=== PATIENT | female | born 1950 | race Caucasian/White ===

== ENCOUNTER 2018-06-28 10:19 | Emergency (ER) | payer OTHER, MEDICARE ==
[~2018-06-28] VITALS: Ht 165.1 cm; Wt 65.8 kg
[2018-06-28] MEDS ORDERED: ONDANSETRON HCL 4 MG ORAL DISINTEGRATING TAB PO ONE (11:30)
[2018-06-28] MEDS ORDERED: TRAMADOL HCL 50 MG TAB PO ONE (11:30)
[2018-06-28] MEDS ORDERED: ULTRAM50 MG PO (11:44)
[2018-06-28] MEDS ORDERED: ZOFRAN ODT4 MG SL (11:44)
== END 2018-06-28 11:57 | disposition home or self-care (01) ==
LOC: FSED 10:19
DX: M25.562 Pain in left knee (principal); S83.412A Sprain of medial collateral ligament of left knee, initial encounter; S83.242A Other tear of medial meniscus, current injury, left knee, initial encounter; X58.XXXA Exposure to other specified factors, initial encounter; Y92.481 Parking lot as the place of occurrence of the external cause; I10 Essential (primary) hypertension; J44.9 Chronic obstructive pulmonary disease, unspecified
CPT/HCPCS: 99284

== ENCOUNTER 2021-11-04 13:20 | Emergency (ER) | payer MEDICARE, OTHER ==
[~2021-11-04] VITALS: Ht 165.1 cm; Wt 56.7 kg
[~2021-11-04 13:20] MED LIST: ULTRAM50 MG PO; ZOFRAN ODT4 MG SL
[2021-11-04] MEDS ORDERED: FAMOTIDINE 20 MG/2 ML VIAL IV STA (13:56)
[2021-11-04] MEDS ORDERED: DEXAMETHASONE SOD PHOS 10 MG/1 ML VIAL IV ONE (14:15)
[2021-11-04] MEDS ORDERED: SODIUM CHLORIDE 0.9% 500ML 500 ML IV ONE (14:15)
[2021-11-04] MEDS ORDERED: ONDANSETRON HCL INJ 2MG/ML 2ML 2 MG/ML VIAL IV STA (15:12)
[2021-11-04] MEDS ORDERED: ONDANSETRON HCL INJ 2MG/ML 2ML 2 MG/ML VIAL ONE (15:20)
[2021-11-04 17:00] VITALS: BP 123/72
== END 2021-11-04 16:50 | disposition home or self-care (01) ==
LOC: ER 13:48
DX: R06.02 Shortness of breath (principal); L25.9 Unspecified contact dermatitis, unspecified cause; I10 Essential (primary) hypertension; J44.9 Chronic obstructive pulmonary disease, unspecified; Z85.828 Personal history of other malignant neoplasm of skin; F17.210 Nicotine dependence, cigarettes, uncomplicated
CPT/HCPCS: 99284; J1100; J7040; J2405

== ENCOUNTER 2025-03-15 11:13 | Inpatient (IN) | payer MEDICARE ==
[~2025-03-15] VITALS: Ht 165.1 cm; Wt 59.0 kg
[2025-03-15 12:47] LABS: BASOPHILS # (AUTO) 0.1 (0.0-0.1); BASOPHILS % 0.8 % (0.0-1.0); EOSINOPHILS # (AUTO) 0.2 (0.0-0.4); EOSINOPHILS % 2.3 % (0.0-6.0); HEMATOCRIT 46.2 % (34.2-44.1); HEMOGLOBIN 16.1 g/dL (12.0-16.0); LYMPHOCYTES # (AUTO) 1.1 (1.0-3.2); LYMPHOCYTES % 15.3 % (18.0-39.1); MEAN CORPUSCULAR HEMOGLOBIN 32.9 pg (28-32); MEAN CORPUSCULAR HGB CONC 34.8 g/dL (31-35); MEAN CORPUSCULAR VOLUME 94.3 fL (81-99); MONOCYTES # (AUTO) 0.7 (0.2-0.8); MONOCYTES % 9.8 % (4.4-11.3); NEUTROPHILS # (AUTO) 5.3 (2.1-6.9); NEUTROPHILS % 71.4 % (38.7-80.0); PLATELET COUNT 311 x10e3/uL (140-360); RED CELL DISTRIBUTION WIDTH 13.1 % (11.7-14.4); WHITE BLOOD COUNT 7.37 x10e3/uL (4.8-10.8)
[2025-03-15 13:04] LABS: INR 0.84
[2025-03-15 13:05] LABS: PARTIAL THROMBOPLASTIN TIME 30.3 seconds (23.8-35.5)
[2025-03-15] MEDS: HYDROMORPHONE 1MG/1ML INJ IV STA (13:05)
[2025-03-15] MEDS: SODIUM CHLORIDE 0.9% 1000ML 1,000 ML IV STA (13:05)
[2025-03-15 13:09] VITALS: TEMP 97.8
[2025-03-15 13:12] LABS: ALBUMIN 3.7 g/dL (3.5-5.0); ALBUMIN/GLOBULIN RATIO 0.9 (0.8-2.0); BILIRUBIN,TOTAL 0.5 mg/dL (0.2-1.2); CALCIUM 9.3 mg/dL (8.4-10.2); CREATININE, SERUM 0.72 mg/dL (0.57-1.11); MAGNESIUM 2.1 MG/DL (1.3-2.1); TOTAL PROTEIN 7.9 g/dL (6.5-8.1)
[2025-03-15 13:18] LABS: TROPONIN I 0.003 ng/mL (0-0.300)
[2025-03-15] MEDS ORDERED: IOPAMIDOL 370 MG/ML 100 ML INFUS..BTL INJ ONE (13:28)
[2025-03-15 14:03] LABS: BILIRUBIN,URINE NEGATIVE (NEGATIVE); CLARITY,URINE SL CLOUDY (CLEAR); COLOR,URINE YELLOW (YELLOW); GLUCOSE, URINE NEGATIVE (NEGATIVE); KETONES,URINE 1+ (NEGATIVE); LEUKOCYTE ESTERASE ,URINE NEGATIVE (NEGATIVE); NITRITE,URINE NEGATIVE (NEGATIVE); PH,URINE 6 (5 - 7); PROTEIN,URINE DIPSTICK NEGATIVE (NEGATIVE); URINE UROBILINOGEN 0.2 mg/dL (0.2 - 1)
[2025-03-15] MEDS: ONDANSETRON HCL INJ 2MG/ML 2ML 2 MG/ML VIAL IV STA (14:14)
[2025-03-15 14:16] LABS: BACTERIA,URINE FEW /HPF; EPITHELIAL CELLS,URINE MANY /LPF
[2025-03-15 14:43] LABS: CHOL/HDL RATIO 2.8 (3.0-3.6)
[2025-03-15 16:46] VITALS: PULSE 89; RESP 24
[2025-03-15] MEDS: SODIUM CHLORIDE 0.9% 1000ML 1,000 ML IV SCH (17:50)
[2025-03-15] MEDS: HYDROMORPHONE 1MG/1ML INJ IV PRN (17:51)
[2025-03-15] MEDS: ONDANSETRON HCL INJ 2MG/ML 2ML 2 MG/ML VIAL IV PRN (17:51)
[2025-03-15 20:00] VITALS: BP 137/79; PULSE 80; RESP 18; TEMP 97.2; O2SAT 100
[2025-03-15 20:35] VITALS: BP 137/79; PULSE 80; RESP 18; TEMP 97.2; O2SAT 100
[2025-03-15 21:21] LABS: TROPONIN I 0.004 ng/mL (0-0.300)
[2025-03-15] MEDS: NICOTINE 21 MG/EA PATCH TOP ONE (21:36)
[2025-03-15] MEDS ORDERED: VALSARTAN320 MG PO (22:05)
[2025-03-15] MEDS ORDERED: NIFEDIPINE ER30 MG PO (22:05)
[2025-03-15] MEDS ORDERED: TRELEGY ELLIPT1 EAC1 INH (22:05)
[2025-03-15] MEDS ORDERED: SYMBICORT 16010.2 GM INH (22:05)
[2025-03-15 22:19] VITALS: BP 137/79; PULSE 80; RESP 18; TEMP 97.2; O2SAT 100
[2025-03-16] VITALS: BP 143/74; PULSE 79; RESP 20; TEMP 98; O2SAT 96
[2025-03-16 05:46] LABS: BASOPHILS # (AUTO) 0.1 (0.0-0.1); BASOPHILS % 0.9 % (0.0-1.0); EOSINOPHILS # (AUTO) 0.3 (0.0-0.4); EOSINOPHILS % 4.2 % (0.0-6.0); HEMATOCRIT 38.2 % (34.2-44.1); HEMOGLOBIN 13.2 g/dL (12.0-16.0); LYMPHOCYTES # (AUTO) 1.2 (1.0-3.2); MEAN CORPUSCULAR HEMOGLOBIN 32.5 pg (28-32); MEAN CORPUSCULAR HGB CONC 34.6 g/dL (31-35); MEAN CORPUSCULAR VOLUME 94.1 fL (81-99); MONOCYTES # (AUTO) 0.7 (0.2-0.8); MONOCYTES % 10.5 % (4.4-11.3); NEUTROPHILS # (AUTO) 4.2 (2.1-6.9); NEUTROPHILS % 66.1 % (38.7-80.0); PLATELET COUNT 263 x10e3/uL (140-360); RED BLOOD COUNT 4.06 x10e6/uL (3.6-5.1); RED CELL DISTRIBUTION WIDTH 13.1 % (11.7-14.4); WHITE BLOOD COUNT 6.38 x10e3/uL (4.8-10.8)
[2025-03-16 06:17] LABS: ALBUMIN 3.1 g/dL (3.5-5.0); ALBUMIN/GLOBULIN RATIO 0.9 (0.8-2.0); ANION GAP 16.4 mmol/L (8-16); BILIRUBIN,TOTAL 0.4 mg/dL (0.2-1.2); CALCIUM 8.2 mg/dL (8.4-10.2); CREATININE, SERUM 0.62 mg/dL (0.57-1.11); TOTAL PROTEIN 6.5 g/dL (6.5-8.1)
[2025-03-16 06:19] LABS: POTASSIUM 3.4 mmol/L (3.5-5.1)
[2025-03-16 06:52] LABS: TROPONIN I 0.002 ng/mL (0-0.300)
[2025-03-16 07:42] VITALS: BP 152/82; PULSE 82; RESP 18; TEMP 98.5; O2SAT 94
[2025-03-16 09:00] VITALS: BP 152/82; PULSE 82; RESP 18; TEMP 98.5; O2SAT 94
[2025-03-16] MEDS: NICOTINE 21 MG/EA PATCH TOP SCH (09:36)
[2025-03-16 11:27] VITALS: BP 153/74; PULSE 87; RESP 16; TEMP 97.8; O2SAT 97
[2025-03-16 15:27] VITALS: BP 158/78; PULSE 80; RESP 18; TEMP 97.9; O2SAT 98
[2025-03-16] MEDS: ACETAMINOPHEN 325 MG TAB PO PRN (16:06)
[2025-03-16] MEDS ORDERED: GADOBENATE DIMEGLUMINE 1 ML IV ONE (16:14)
[2025-03-16 20:00] VITALS: BP 124/68; PULSE 84; RESP 18; TEMP 97.5; O2SAT 98
[2025-03-17] VITALS: BP 130/67; PULSE 78; RESP 18; TEMP 97.5; O2SAT 95
[2025-03-17 04:00] VITALS: BP 132/73; PULSE 81; RESP 20; TEMP 97.9; O2SAT 97
[2025-03-17 05:48] LABS: BASOPHILS # (AUTO) 0.1 (0.0-0.1); BASOPHILS % 1.2 % (0.0-1.0); EOSINOPHILS # (AUTO) 0.4 (0.0-0.4); EOSINOPHILS % 6.2 % (0.0-6.0); HEMATOCRIT 36.7 % (34.2-44.1); HEMOGLOBIN 12.8 g/dL (12.0-16.0); LYMPHOCYTES # (AUTO) 1.2 (1.0-3.2); LYMPHOCYTES % 20.6 % (18.0-39.1); MEAN CORPUSCULAR HEMOGLOBIN 32.6 pg (28-32); MEAN CORPUSCULAR HGB CONC 34.9 g/dL (31-35); MEAN CORPUSCULAR VOLUME 93.4 fL (81-99); MONOCYTES # (AUTO) 0.7 (0.2-0.8); NEUTROPHILS # (AUTO) 3.4 (2.1-6.9); NEUTROPHILS % 59.8 % (38.7-80.0); PLATELET COUNT 257 x10e3/uL (140-360); RED BLOOD COUNT 3.93 x10e6/uL (3.6-5.1); WHITE BLOOD COUNT 5.67 x10e3/uL (4.8-10.8)
[2025-03-17 06:31] LABS: ALBUMIN/GLOBULIN RATIO 0.9 (0.8-2.0); ANION GAP 15.2 mmol/L (8-16); BILIRUBIN,TOTAL 0.4 mg/dL (0.2-1.2); CREATININE, SERUM 0.65 mg/dL (0.57-1.11); TOTAL PROTEIN 6.3 g/dL (6.5-8.1)
[2025-03-17 06:38] LABS: POTASSIUM 3.2 mmol/L (3.5-5.1)
[2025-03-17 06:56] LABS: THYROID STIMULATING HORMONE 1.18 uIU/mL (0.350-4.940)
[2025-03-17 08:00] VITALS: BP 127/74; PULSE 81; RESP 18; TEMP 97.6; O2SAT 98
[2025-03-17] MEDS: FLUTICASONE INH SCH (09:00)
[2025-03-17] MEDS: [UNRECOGNIZED DRUG - OTHER] INH SCH (09:00)
[2025-03-17] MEDS: VILANTER INH SCH (09:00)
[2025-03-17] MEDS: VALSARTAN 160 MG TAB PO SCH (09:00)
[2025-03-17] MEDS: NIFEDIPINE CR 30 MG TAB PO SCH (09:00)
[2025-03-17 12:00] VITALS: BP 155/81; PULSE 77; RESP 18; TEMP 98.1; O2SAT 97
[2025-03-17 16:00] VITALS: BP 153/80; PULSE 78; RESP 18; TEMP 97.6; O2SAT 97
[2025-03-17 20:00] VITALS: BP 130/69; PULSE 83; RESP 18; TEMP 97.9; O2SAT 95
[2025-03-18] VITALS: BP 133/77; PULSE 82; RESP 18; TEMP 98; O2SAT 95
[2025-03-18 02:59] VITALS: BP 114/62; PULSE 82; RESP 18; TEMP 98; O2SAT 99
[2025-03-18 04:00] VITALS: BP 147/71; PULSE 84; RESP 18; TEMP 97.6; O2SAT 95
[2025-03-18 05:20] LABS: BASOPHILS # (AUTO) 0.1 (0.0-0.1); BASOPHILS % 1.8 % (0.0-1.0); EOSINOPHILS # (AUTO) 0.4 (0.0-0.4); EOSINOPHILS % 6.8 % (0.0-6.0); LYMPHOCYTES # (AUTO) 1.2 (1.0-3.2); LYMPHOCYTES % 19.6 % (18.0-39.1); MEAN CORPUSCULAR HEMOGLOBIN 32.6 pg (28-32); MEAN CORPUSCULAR HGB CONC 34.2 g/dL (31-35); MEAN CORPUSCULAR VOLUME 95.2 fL (81-99); MONOCYTES # (AUTO) 0.7 (0.2-0.8); MONOCYTES % 10.5 % (4.4-11.3); NEUTROPHILS # (AUTO) 3.8 (2.1-6.9); PLATELET COUNT 258 x10e3/uL (140-360); RED BLOOD COUNT 3.99 x10e6/uL (3.6-5.1); RED CELL DISTRIBUTION WIDTH 12.9 % (11.7-14.4); WHITE BLOOD COUNT 6.17 x10e3/uL (4.8-10.8)
[2025-03-18 05:51] LABS: ALANINE AMINOTRANSFERASE 11 IU/L (0-55); ALBUMIN 2.9 g/dL (3.5-5.0); ALBUMIN/GLOBULIN RATIO 0.9 (0.8-2.0); ALKALINE PHOSPHATASE 74 IU/L (40-150); ANION GAP 13.9 mmol/L (8-16); BILIRUBIN,TOTAL 0.3 mg/dL (0.2-1.2); BLOOD UREA NITROGEN < 5 mg/dL (7-26); CARBON DIOXIDE 20 mmol/L (22-29); CHLORIDE 103 mmol/L (98-107); CREATININE, SERUM 0.62 mg/dL (0.57-1.11); EST GLOMERULAR FILTRATION RATE 93 ML/MIN (>=60); GLUCOSE 108 mg/dL (74-118); LIPASE 252 U/L (8-78); SODIUM 134 mmol/L (136-145); TOTAL PROTEIN 6.3 g/dL (6.5-8.1)
[2025-03-18 05:52] LABS: BUN/CREATININE RATIO 8 (6-25)
[2025-03-18 05:53] LABS: POTASSIUM 2.9 mmol/L (3.5-5.1)
[2025-03-18] MEDS: POTASSIUM CHLORIDE 20 MEQ TAB CR PO ONE (06:12)
[2025-03-18 07:58] VITALS: BP 161/86; PULSE 81; RESP 18; TEMP 97.7
[2025-03-18 12:54] VITALS: BP 109/72; PULSE 87; RESP 20; TEMP 97.4
[2025-03-18 17:42] VITALS: BP 158/79; PULSE 85; RESP 20; TEMP 98.4; O2SAT 98
[2025-03-18] MEDS ORDERED: NICODERM CQ1 EAC2 TOP (19:12)
[2025-03-18] MEDS ORDERED: ACETAMINOPHEN325 M1 PO (19:12)
[2025-03-18] MEDS ORDERED: PROTONIX40 MG PO (19:53)
[2025-03-18] MEDS ORDERED: NAPROXEN375 MG PO (19:53)
== END 2025-03-18 20:07 | disposition home or self-care (01) | DRG 439 ==
LOC: ER 11:47 → ERHOLD 16:48 → MED/SURG2 20:04
PROVIDERS: ADMIT Internal Medicine; ATTEND Internal Medicine
DX: K85.90 Acute pancreatitis without necrosis or infection, unspecified (principal); C25.2 Malignant neoplasm of tail of pancreas; C34.11 Malignant neoplasm of upper lobe, right bronchus or lung; E87.1 Hypo-osmolality and hyponatremia; K86.89 Other specified diseases of pancreas; R91.8 Other nonspecific abnormal finding of lung field; I10 Essential (primary) hypertension; J44.9 Chronic obstructive pulmonary disease, unspecified; F17.200 Nicotine dependence, unspecified, uncomplicated; S22.42XD Multiple fractures of ribs, left side, subsequent encounter for fracture with routine healing; X58.XXXD Exposure to other specified factors, subsequent encounter; Z79.899 Other long term (current) drug therapy
CPT/HCPCS: 36415; 71045; 71260; 74177; 74183; 74470; 80053; 80061; 81001; 82550; 83690; 83735; 83880; 84443; 84484; 85025; 85610; 85730; 87086; 93005; 94760; 99252; 99284; J1171; J2405; J2470; J7030; Q9967